=== PATIENT | male | born 1930 | race Caucasian/White ===

== ENCOUNTER → 2017-01-14 | Outpatient (REF) | payer MEDICARE, MEDICAID ==
[~2017-01-14] MED LIST: AMLO5TAB2 PO; BRIM0.2S OU; COLA100C5 PO; FLOM5CAP PO; GABA-282 PO; JANU25TA PO; METO1TAB7 PO; PERCOCET PO; TYLENOL PO
== END ==
LOC: M SMT 16:57
PROVIDERS: ATTEND Urology
DX: C65.9 Malignant neoplasm of unspecified renal pelvis (principal)